=== PATIENT | female | born 1980 | race Caucasian/White ===

== ENCOUNTER 2023-01-16 08:22 | Emergency (ER) | payer OTHER, SELFPAY ==
[2023-01-16] VITALS (66 sets, daily range): BP systolic 129–190; BP diastolic 63–91; PULSE 69–101; RESP 20–24; TEMP 35.7; O2SAT 97–100; BMI 2841.0
--- NOTE | 2023-01-16 09:01 | ED.NAVMDI ---
HPI - Nausea/Vomiting/Diarrhea General Time Seen by Provider: 09:01 Date Seen: 01/16/23 Chief complaint: Nausea/Vomiting Stated complaint: Nausea, unable to walk Time Seen by Provider: 01/16/23 09:02 Source: patient and RN notes reviewed Mode of arrival: wheelchair Limitations: no limitations History of Present Illness HPI Narrative: Patient is a 42-year-old female from the [facility] [place] with onset of nausea vomiting abdominal cramping around 3:00 a.m.. She is not had any diarrhea, does not feel like she is passing gas from below. She did eat pizza last night in nose there can be reactions with the Mounjaro. She was started on this for weight loss and being prediabetic. She states she has a known kidney stone but it does not feel like that. She does not have pain on 1 side radiating down. She is aware we will check a urinalysis however. Her primary concern is nausea. She came in a vehicle, was noted to be hyperventilating and in tetany. That has improved. She is having some abdominal cramping and ongoing nausea. She is not aware of any potential food poisoning or ill contacts. Symptoms just started abruptly this morning. She has had and her appendix out, has had 2 C sections. No history of bowel obstruction to date. MD elicited complaint: nausea, vomiting and abdominal pain Related Data Home Medications Medication Instructions Recorded Confirmed bupropion HCl PO 01/16/23 sertraline 100 mg tablet 100 mg PO DAILY 01/16/23 01/16/23 tirzepatide 5 mg/0.5 mL 5 mg subcut QWEEK 01/16/23 01/16/23 subcutaneous pen injector (Mounjaro) Allergies Allergy/AdvReac Type Severity Reaction Status Date / Time No Known Drug Allergies Allergy Verified 01/16/23 08:39 Review of Systems Status of ROS: Reports: 6 or more systems reviewed and unremarkable except as noted in History and below [facility] Social History Smoking Status: Never smoker Do you use any of these nicotine containing products: None Second hand tobacco smoke exposure: No How often do you have a drink containing alcohol: never How often do you have six or more drinks on one occasion: Never AUDIT-C Alcohol total score: 0 Non-prescribed substance use: denies use service: No Exam Const: Vital Signs, click to edit/add: Vital Signs - 24 hr 01/16/23 08:30 01/16/23 08:37 01/16/23 09:00 Temperature 96.3 F L Pulse Rate Pulse Rate [Pulse Oximeter] 86 84 87 Respiratory Rate 24 20 Blood Pressure Blood Pressure [Ri ght Upper Arm] 135/70 135/70 140/66 H Pulse Oximetry 100 100 100 Oxygen Delivery Me thod Room Air Room Air Room Air 01/16/23 09:05 01/16/23 09:30 01/16/23 10:08 Temperature Pulse Rate 84 Pulse Rate [Pulse Oximeter] Respiratory Rate Blood Pressure Blood Pressure [Ri ght Upper Arm] 129/78 Pulse Oximetry 100 100 Oxygen Delivery Me thod 01/16/23 10:15 01/16/23 10:30 01/16/23 10:33 Temperature Pulse Rate 80 76 72 Pulse Rate [Pulse Oximeter] Respiratory Rate Blood Pressure 168/76 H Blood Pressure [Ri ght Upper Arm] Pulse Oximetry 100 100 100 Oxygen Delivery Dc thod 01/16/23 10:45 01/16/23 11:00 01/16/23 11:02 Temperature Pulse Rate 83 93 92 Pulse Rate [Pulse Oximeter] Respiratory Rate Blood Pressure 143/72 H Blood Pressure [Ri ght Upper Arm] Pulse Oximetry 100 100 100 Oxygen Delivery Me thod 01/16/23 11:03 01/16/23 11:15 01/16/23 11:30 Temperature Pulse Rate 90 80 74 Pulse Rate [Pulse Oximeter] Respiratory Rate Blood Pressure Blood Pressure [Ri ght Upper Arm] Pulse Oximetry 100 100 100 Oxygen Delivery Dc thod 01/16/23 11:33 01/16/23 11:45 01/16/23 12:00 Temperature Pulse Rate 71 75 91 Pulse Rate [Pulse Oximeter] Respiratory Rate Blood Pressure 190/91 H Blood Pressure [Ri ght Upper Arm] Pulse Oximetry 100 100 100 Oxygen Delivery Me thod 01/16/23 12:02 01/16/23 12:15 01/16/23 12:30 Temperature Pulse Rate 96 101 H 87 Pulse Rate [Pulse Oximeter] Respiratory Rate Blood Pressure 150/68 H Blood Pressure [Ri ght Upper Arm] Pulse Oximetry 100 100 100 Oxygen Delivery Dc thod 01/16/23 12:32 01/16/23 12:45 01/16/23 13:00 Temperature Pulse Rate 90 86 88 Pulse Rate [Pulse Oximeter] Respiratory Rate Blood Pressure 154/73 H Blood Pressure [Ri ght Upper Arm] Pulse Oximetry 100 100 100 Oxygen Delivery Me thod 01/16/23 13:01 01/16/23 13:15 01/16/23 13:30 Temperature Pulse Rate 87 92 97 Pulse Rate [Pulse Oximeter] Respiratory Rate Blood Pressure 159/76 H Blood Pressure [Ri ght Upper Arm] Pulse Oximetry 100 100 100 Oxygen Delivery Me thod 01/16/23 13:32 01/16/23 13:45 01/16/23 14:12 Temperature Pulse Rate 99 89 96 Pulse Rate [Pulse Oximeter] Respiratory Rate Blood Pressure 149/72 H Blood Pressure [Ri ght Upper Arm] Pulse Oximetry 100 100 97 Oxygen Delivery Me thod 01/16/23 14:15 01/16/23 14:30 01/16/23 14:31 Temperature Pulse Rate 80 77 78 Pulse Rate [Pulse Oximeter] Respiratory Rate Blood Pressure 158/77 H Blood Pressure [Ri ght Upper Arm] Pulse Oximetry 100 99 99 Oxygen Delivery Me thod 01/16/23 14:32 Temperature Pulse Rate 98 Pulse Rate [Pulse Oximeter] Respiratory Rate Blood Pressure Blood Pressure [Ri ght Upper Arm] Pulse Oximetry 100 Oxygen Delivery Me thod Documenting provider has reviewed patient's vital signs: yes Common normals: oriented x3, no limitations, alert and well nourished General appearance: cooperative, well kempt, well developed, anxious and ill appearing (Seems uncomfortable.) acutely Nutritional appearance: overweight HENMT: Common normals: normocephalic, head/scalp atraumatic, hearing grossly normal bilaterally, external ears normal, external nose normal, moist oral mucous membranes, oropharynx normal, dentition normal and gingiva normal Head and scalp: normocephalic and atraumatic Nose: external nose normal External ear: external ears normal Eye: Common normals: PERRL, EOMs intact bilaterally, conjunctivae normal and no scleral icterus Conjunctiva: conjunctiva(e) normal Pupil: PERRL Neck & C-Spine: Common normals: full ROM, no lymphadenopathy and supple Resp: Common normals: normal respiratory effort, no retractions, no use of accessory muscles and clear to auscultation bilaterally Auscultation: clear to auscultation bilaterally Cardio: Common normals: regular rate, regular rhythm, S1 normal heart sound, S2 normal heart sound, no gallops, no clicks and no murmurs Rate: regular rate Rhythm: regular rhythm Heart sounds: S1 normal and S2 normal GI: Other: Abdomen is soft, does have bowel sounds without concerning character. Abdomen seems mildly distended but no rebound or guarding. Has epigastric to left upper quadrant tenderness. No organomegaly noted. Extremity: Common normals: no calf tenderness and no pedal edema Neuro: Common normals: oriented x3 Sensorium/orientation: alert Psych: Appearance: well kempt Course Course Hospital Course: Gastritis, obstructive bowel pathology, possible gallbladder and pancreatitis issues are considerations here. Will start with a flat and upright, full complement of labs and obtain urinalysis when we can see this. Presentation does not seem likely to be kidney stone pathology but will still be considered. As far as symptom management, start a L of normal saline, 4 mg IV Zofran and 15 mg IV Toradol. Patient obviously was having some anxiety/panic attack symptoms with a hyperventilation and the tetany on arrival. Will be getting electrolytes including magnesium as this could compound symptoms and she is observed to have GI losses at this time. Reevaluation(s) Time of Reevaluation #1: 11:10 Reevaluation #1: Patient is still having significant nausea. We have ordered another L of IV fluids as she still had not urinated either. I have given subsequent dose of 4 mg IV Zofran and 0.5 mg IV Ativan, patient just received those. She is aware of the kidney stone on the right side, still awaiting urinalysis. She understands given her ongoing symptoms we may be forced to proceed with further imaging. Flat and upright are not showing any concerning bowel pathology. She does wonder if she could have some gallbladder stones. We are going to proceed with right upper quadrant ultrasound at this time. Liver enzymes are reassuring but that does not rule out cholelithiasis. She notes that she increased her Mounjaro 3 weeks ago, has noticed some increased GI symptoms with this. Her last dose was a week ago Tuesday. Time of Reevaluation #2: 13:24 Reevaluation #2: Patient's urine is reviewed, it is come back positive for UTI, she has ongoing nausea and vomiting, no abdominal pain at this time. This is certainly concerning for possible pyelonephritis and possible underlying infected kidney stone. She does relate to me at this time about 2 weeks ago she was on antibiotics for similar presentation. She completed these. I have ordered 1 g IV Rocephin, CT abdomen pelvis. Will initiate some maintenance fluids, try some Compazine for nausea control. We are looking for transfer up to [facility] and are calling. It is possible that she may need urologic intervention, not definitively known at this time. Time of Reevaluation #3: 14:53 Reevaluation #3: Reviewed with patient that she is accepted at [facility] on observation. She is still miserable with nausea, will try another dose of Ativan. No pain at this time. Reviewed that there is concern that this stone is a nidus for infection for her. Consultations Consultation #1: Have spoken with the hospitalist at [facility], she accepts patient for observation. Agrees there is concerned that the stone may be a nidus of infection for this patient. Was able to see in her records on December 31 that the patient was given Augmentin for 7 days. Urine culture grew E coli that was pansensitive. Time: 14:49 Vital Signs Vital signs: Initial Vital Signs Temperature 96.3 F L 01/16/23 08:30 Temperature Source Temporal Artery Scan 01/16/23 08:30 Pulse Rate 86 01/16/23 08:30 Pulse Rhythm Regular 01/16/23 08:30 Respiratory Rate 24 01/16/23 08:30 Blood Pressure 135/70 01/16/23 08:30 Blood Pressure Mean 91 01/16/23 08:30 Blood Pressure Position Supine 01/16/23 08:30 Pulse Oximetry 100 01/16/23 08:30 Oxygen Delivery Method Room Air 01/16/23 08:30 Vital Signs Temperature 96.3 F L 01/16/23 08:30 Pulse Rate 86 01/16/23 08:30 Respiratory Rate 24 01/16/23 08:30 Blood Pressure 135/70 01/16/23 08:30 Pulse Oximetry 100 01/16/23 08:30 Oxygen Delivery Method Room Air 01/16/23 08:30 Temperature 96.3 F L 01/16/23 08:30 Pulse Rate 94 01/16/23 19:15 Respiratory Rate 20 01/16/23 09:00 Blood Pressure 164/81 H 01/16/23 19:12 Pulse Oximetry 100 01/16/23 19:15 Oxygen Delivery Method Room Air 01/16/23 09:00 MDM - Nausea/Vomiting/Diarrhea Lab Data Attestation: I reviewed the patient's lab results. Labs: Lab Results 01/16/23 01/16/23 Range/Units 09:22 12:10 WBC 10.88 (4.50-11.00) K/uL RBC 4.68 (4.00-5.20) m/uL Hgb 13.1 (12.0-16.0) gm/dL Hct 38.9 (33.0-51.0) % MCV 83 (80-100) fL MCH 28 (26-34) pg MCHC 34 (32-36) gm/dL RDW Coeff of Uyen 12.9 (11.5-15.5) % Plt Count 81 L (140-440) K/uL Neut % (Auto) 93.1 H (42.0-72.0) % Lymph % (Auto) 4.8 L (20-44) % Cocke % (Auto) 1.6 (0.0-11.0) % Eos % (Auto) 0.1 (0.0-7.0) % Baso % (Auto) 0.1 (0.0-3.0) % Neut # (Auto) 10.10 H (1.7-7.0) K/uL Lymph # (Auto) 0.50 L (0.90-2.90) K/uL Cocke # (Auto) 0.20 (0.00-0.90) K/UL Eos # (Auto) 0.01 (0.00-0.50) K/uL Baso # (Auto) 0.01 (0.00-0.30) K/uL Abs Immat Gran (auto) 0.03 (0.00-0.30) K/uL Imm/Tot Granulo (auto) 0.3 % Sodium 138 (135-149) mmol/L Potassium 3.5 L (3.6-5.1) mmol/L Chloride 103 (96-114) mmol/L Carbon Dioxide 18 L (20-32) mmol/L BUN 17 (5-24) mg/dL Creatinine 0.6 (0.5-1.5) mg/dL Estimated Creat Clear 173.18 Estimated GFR 115 ml/min Glucose 136 H (60-115) mg/dL Lactate 2.4 H (0.5-1.9) mmol/L Calcium 9.6 (8.4-10.6) mg/dL Magnesium 1.8 (1.5-2.6) mg/dL Total Bilirubin 0.9 (0.1-1.5) mg/dL AST 27 (12-35) U/L ALT 23 (4-35) U/L Alkaline Phosphatase 90 (40-150) U/L C-Reactive Protein 2.8 H (0.5-1.0) mg/dL Total Protein 8.7 H (6.0-8.3) g/dL Albumin 4.8 (3.3-5.0) g/dL Lipase 63 (23-300) U/L Urine Color Yellow (Yellow) Urine Appearance Cloudy A (Clear) Urine pH 6.0 (5.0-8.5) Ur Specific [place] 1.025 (1.000-1.030) Urine Protein 1+ A (Negative) Urine Glucose (UA) Negative (Negative) Urine Ketones 4+ A (Negative) Urine Blood 1+ A (Negative) Urine Nitrite Positive A (Negative) Urine Bilirubin Negative (Negative) Urine Urobilinogen 0.2 (0.2-1.0) Ur Leukocyte Esterase 3+ A (Negative) Urine RBC 5-10 A (0-2) Urine WBC 25-50 A (0-5) Ur Squamous Epith Cells Few (None-Few) Urine Bacteria Moderate A (None) Imaging Data Abdominal x-ray: Attestation: I have reviewed the pertinent imaging results. Radiologist's impression: Patient: VERA KITCHEN Facility:?[facility] Patient ID:?[id number] Site Patient ID:?[id number]. Site :?1980 Study:?XRay Abdomen flat/upright-01/16/2023 9:58:35 AM Ordering Physician:Landen Villavicencio Final Report: Indication: Abdominal pain, nausea vomiting Technique: Four upright views of the abdomen and pelvis Comparison: None Findings: Nonobstructive bowel gas pattern. No radiographic evidence of pneumatosis, pneumoperitoneum or portal venous gas. Ovoid calcification projecting over the right flank measuring 1.5 cm may represent a nonobstructive nephrolith. No acute fracture. Visualized lung bases are clear. Impression: 1. Nonobstructive bowel gas pattern. 2. Ovoid calcification projecting over the right flank measuring 1.5 cm may represent a nonobstructive nephrolith. Dictated by Mark Lau MD @ 01/16/2023 10:03:09 AM (Electronic Signature) US - abdomen: Attestation: I have reviewed the pertinent imaging results. Radiologist's impression: Patient: [facility] Facility:?[facility] Patient ID:?[id number] Site Patient ID:?[id number]. Site :?1980 Study:?US Abdomen RUQ-01/16/2023 12:09:50 PM Ordering Physician:Landen Villavicencio Final Report: INDICATION: Nausea, vomiting, abdominal discomfort COMPARISON: none TECHNIQUE: Real time figueroa scale imaging and color Doppler analysis was performed of the right upper quadrant. FINDINGS: The patient`s liver is of normal size and has uniform echogenicity. There is a normal appearance of the hepatic IVC and proximal abdominal aorta. There is no evidence of ascites. The gallbladder is of normal size and there is a small amount of sludge. The gallbladder wall measures 2 mm in thickness. The common bile duct is of normal size and measures 5 mm in diameter at the level of the benton hepatis. There is no evidence of hydronephrosis in the right kidney. The right kidney measures 13 x 4.3 x 6.8 cm in length. There is a nonobstructive nephrolith pelvis measuring approximately 1.7 x 1.8 cm. IMPRESSION: 1. Gallbladder sludge without acute cholecystitis. 2. No hydronephrosis. Nonobstructive nephrolith in the right kidney pelvis measuring approximately 1.7 x 1.8 cm. Dictated by Mark Lau MD @ 01/16/2023 12:26:33 PM (Electronic Signature) CT Chest/Ab/Pelvis: Attestation: I have reviewed the pertinent imaging results. Radiologist's impression: Patient: [facility] Facility:?[facility] Patient ID:?[id number] Site Patient ID:?[id number]. Site :?1980 Study:?CT Chest/Abd/Pelvis W/ 97CC [id number]/23/2023 2:12:48 PM Ordering Physician:Landen Villavicencio Final Report: INDICATION: Nausea and vomiting. Urinary tract infection. Right kidney stone. TECHNIQUE: CT chest, abdomen and pelvis acquired with IV contrast. 97 mL IV Isovue 370. COMPARISON: Abdomen radiograph and ultrasound 01/16/2023. FINDINGS: Chest: Cardiovascular structures: Heart size is normal. Thoracic aorta and main pulmonary artery are normal in caliber. Mediastinum and darrel: No mass or adenopathy. Lungs: The central airways are clear. No suspicious pulmonary nodule or mass. No consolidation, pleural effusion or pneumothorax. Abdomen and Pelvis: Liver: Mild focal fatty infiltration along the gallbladder fossa. No liver lesion. Gallbladder and bile ducts: No calcified cholelithiasis. No biliary ductal dilatation. Spleen: Unremarkable. Pancreas: Unremarkable. Adrenal glands: There is a 1.3 x 1 cm right adrenal nodule (series 7, image 50) a left adrenal gland is normal in appearance. Kidneys: Symmetric nephrograms. There is a 1.3 cm nonobstructing stone in the right renal pelvis (1275 HU). There is minimally increased urothelial enhancement along the right renal collecting system/proximal ureter compared to the left. No ureteral stones. No left renal stones. No renal lesions. GI tract: Small hiatal hernia. No bowel obstruction or inflammation. Appendix is surgically absent. Vascular structures: Minimal atherosclerotic calcification in the abdominal aorta. No abdominal aortic aneurysm. Lymph nodes: No abdominal or pelvic lymphadenopathy. Miscellaneous: No ascites. No free air. Small fat containing umbilical hernia. Pelvic Organs: Unremarkable. Bones: Moderate degenerative changes in the thoracic spine and mild in the lumbar spine. No acute osseous abnormality. Benign bone island in the proximal left femur. No suspicious bone lesion. IMPRESSION: 1. Nonobstructing right renal stone as seen on the same day abdomen ultrasound. 2. Minimally increased enhancement in the right renal collecting system/proximal ureter could be related to infection. No findings to suggest pyelonephritis. 3. Indeterminate 1.3 cm right adrenal nodule. This can be evaluated with dedicated contrast enhanced adrenal CT or MRI as an outpatient. Please note that all CT scans at this facility use dose modulation, iterative reconstruction, and/or weight-based dosing when appropriate to reduce radiation dose to as low as reasonably achievable. Dictated by Annie Brantley MD @ 01/16/2023 2:37:50 PM (Electronic Signature) Discharge Plan Discharge Clinical Impression: Urinary tract infection, Kidney calculus, Nausea & vomiting Patient Disposition: Xfer [facility] Discharge Location: [facility] Prescriptions: No Action sertraline 100 mg tablet 100 mg PO DAILY bupropion HCl PO Mounjaro 5 mg/0.5 mL pen injector 5 mg subcut QWEEK Stand Alone Forms: [employer] Info Instructions Critical Care Time Critical Care Time Critical Care Time: No
--- NOTE | 2023-01-16 09:05 | CRLHL7_ITS ---
For Patients: As a result of the Century Cures Act, medical imaging exams and procedure reports are released immediately into your electronic medical record. You may view this report before your referring provider. If you have questions, please contact your health care provider. Indication: Abdominal pain, nausea vomiting Technique: Four upright views of the abdomen and pelvis Comparison: None Findings: Nonobstructive bowel gas pattern. No radiographic evidence of pneumatosis, pneumoperitoneum or portal venous gas. Ovoid calcification projecting over the right flank measuring 1.5 cm may represent a nonobstructive nephrolith. No acute fracture. Visualized lung bases are clear. Impression: 1. Nonobstructive bowel gas pattern. 2. Ovoid calcification projecting over the right flank measuring 1.5 cm may represent a nonobstructive nephrolith. Dictated by Mark Lau MD @ 01/16/2023 10:03:09 AM (Electronically Signed)
[2023-01-16 09:28] LABS: Lactate* 2.4 mmol/L (0.5-1.9)
[2023-01-16 09:34] LABS: Basophils Absolute Auto 0.01 K/uL (0.00-0.30); Basophils Percent Auto 0.1 % (0.0-3.0); Eosinophils Absolute Auto 0.01 K/uL (0.00-0.50); Eosinophils Percent Auto 0.1 % (0.0-7.0); Hematocrit 38.9 % (33.0-51.0); Hemoglobin* 13.1 gm/dL (12.0-16.0); Immature Granulocytes Abs Auto 0.03 K/uL (0.00-0.30); Immature Granulocytes Pct Auto 0.3 %; Lymphocytes Percent Auto 4.8 % (20-44); Mean Corpuscular HGB Conc 34 gm/dL (32-36); Mean Corpuscular Hemoglobin 28 pg (26-34); Mean Corpuscular Volume 83 fL (80-100); Monocytes Percent Auto 1.6 % (0.0-11.0); Neutrophils Percent Auto 93.1 % (42.0-72.0); Platelet Count* 81 K/uL (140-440); RDW Coefficient of Variation % 12.9 % (11.5-15.5); Red Blood Count 4.68 m/uL (4.00-5.20); White Blood Count* 10.88 K/uL (4.50-11.00)
[2023-01-16 09:35] LABS: Slide Review Reflex No
[2023-01-16] MEDS: 0.9 % SODIUM CHLORIDE 1000 ml 1,000 ML IV (09:35)
[2023-01-16] MEDS: ONDANSETRON 2 MG/ML inj 4 MG IVP ×2 (09:37→11:04)
[2023-01-16] MEDS: KETOROLAC 15 MG/ML inj IVP (09:41)
[2023-01-16 09:49] LABS: Lipase* 63 U/L (23-300); Magnesium* 1.8 mg/dL (1.5-2.6)
[2023-01-16 09:56] LABS: Albumin* 4.8 g/dL (3.3-5.0); Chloride* 103 mmol/L (96-114)
[2023-01-16 09:57] LABS: Potassium* 3.5 mmol/L (3.6-5.1); Sodium* 138 mmol/L (135-149)
[2023-01-16 09:59] LABS: Bilirubin Total* 0.9 mg/dL (0.1-1.5); Creatinine* 0.6 mg/dL (0.5-1.5); Est. Creatinine Clearance* 173.18; Estimated Glomerular Filt Rate 115 ml/min
[2023-01-16 10:00] LABS: Alanine Aminotransferase* 23 U/L (4-35); Alkaline Phosphatase* 90 U/L (40-150); Aspartate Amino Transferase* 27 U/L (12-35); Blood Urea Nitrogen* 17 mg/dL (5-24); Calcium* 9.6 mg/dL (8.4-10.6); Carbon Dioxide* 18 mmol/L (20-32); Glucose* 136 mg/dL (60-115); Total Protein* 8.7 g/dL (6.0-8.3)
[2023-01-16 10:03] LABS: C Reactive Protein* 2.8 mg/dL (0.5-1.0)
[2023-01-16] MEDS: LACTATED RINGERS 1000 ML 1,000 ML IV (10:39)
[2023-01-16] MEDS: LORazepam 2 MG/ML inj 0.5 MG IVP ×2 (11:02→15:02)
--- NOTE | 2023-01-16 11:17 | CRLHL7_ITS ---
For Patients: As a result of the Century Cures Act, medical imaging exams and procedure reports are released immediately into your electronic medical record. You may view this report before your referring provider. If you have questions, please contact your health care provider. INDICATION: Nausea, vomiting, abdominal discomfort COMPARISON: none TECHNIQUE: Real time figueroa scale imaging and color Doppler analysis was performed of the right upper quadrant. FINDINGS: The patient`s liver is of normal size and has uniform echogenicity. There is a normal appearance of the hepatic IVC and proximal abdominal aorta. There is no evidence of ascites. The gallbladder is of normal size and there is a small amount of sludge. The gallbladder wall measures 2 mm in thickness. The common bile duct is of normal size and measures 5 mm in diameter at the level of the benton hepatis. There is no evidence of hydronephrosis in the right kidney. The right kidney measures 13 x 4.3 x 6.8 cm in length. There is a nonobstructive nephrolith pelvis measuring approximately 1.7 x 1.8 cm. IMPRESSION: 1. Gallbladder sludge without acute cholecystitis. 2. No hydronephrosis. Nonobstructive nephrolith in the right kidney pelvis measuring approximately 1.7 x 1.8 cm. Dictated by Mark Lau MD @ 01/16/2023 12:26:33 PM (Electronically Signed)
[2023-01-16 12:23] LABS: Appearance Urine Cloudy (Clear); Bilirubin Urine Negative (Negative); Blood Urine 1+ (Negative); Color Urine Yellow (Yellow); Glucose Urine Negative (Negative); Ketones Urine 4+ (Negative); Leukocyte Esterase Urine 3+ (Negative); Nitrite Urine Positive (Negative); Protein Urine 1+ (Negative); Specific Gravity Urine 1.025 (1.000-1.030); Urobilinogen Urine 0.2 (0.2-1.0)
--- NOTE | 2023-01-16 12:24 | ED.NURSE ---
continues to have more nausea and vomiting-approx 50 ml -gastric secretions. does have more color to her face. was able to stand and walk back from bathroom.
[2023-01-16 12:35] LABS: Bacteria Urine Moderate; Squamous Epithelial Cell Urine Few (None-Few); WBC Urine 25-50 (0-5)
--- NOTE | 2023-01-16 13:18 | CRLHL7_ITS ---
For Patients: As a result of the 21st Century Cures Act, medical imaging exams and procedure reports are released immediately into your electronic medical record. You may view this report before your referring provider. If you have questions, please contact your health care provider. INDICATION: Nausea and vomiting. Urinary tract infection. Right kidney stone. TECHNIQUE: CT chest, abdomen and pelvis acquired with IV contrast. 97 mL IV Isovue 370. COMPARISON: Abdomen radiograph and ultrasound 01/16/2023. FINDINGS: Chest: Cardiovascular structures: Heart size is normal. Thoracic aorta and main pulmonary artery are normal in caliber. Mediastinum and darrel: No mass or adenopathy. Lungs: The central airways are clear. No suspicious pulmonary nodule or mass. No consolidation, pleural effusion or pneumothorax. Abdomen and Pelvis: Liver: Mild focal fatty infiltration along the gallbladder fossa. No liver lesion. Gallbladder and bile ducts: No calcified cholelithiasis. No biliary ductal dilatation. Spleen: Unremarkable. Pancreas: Unremarkable. Adrenal glands: There is a 1.3 x 1 cm right adrenal nodule (series 7, image 50) a left adrenal gland is normal in appearance. Kidneys: Symmetric nephrograms. There is a 1.3 cm nonobstructing stone in the right renal pelvis (1275 HU). There is minimally increased urothelial enhancement along the right renal collecting system/proximal ureter compared to the left. No ureteral stones. No left renal stones. No renal lesions. GI tract: Small hiatal hernia. No bowel obstruction or inflammation. Appendix is surgically absent. Vascular structures: Minimal atherosclerotic calcification in the abdominal aorta. No abdominal aortic aneurysm. Lymph nodes: No abdominal or pelvic lymphadenopathy. Miscellaneous: No ascites. No free air. Small fat containing umbilical hernia. Pelvic Organs: Unremarkable. Bones: Moderate degenerative changes in the thoracic spine and mild in the lumbar spine. No acute osseous abnormality. Benign bone island in the proximal left femur. No suspicious bone lesion. IMPRESSION: 1. Nonobstructing right renal stone as seen on the same day abdomen ultrasound. 2. Minimally increased enhancement in the right renal collecting system/proximal ureter could be related to infection. No findings to suggest pyelonephritis. 3. Indeterminate 1.3 cm right adrenal nodule. This can be evaluated with dedicated contrast enhanced adrenal CT or MRI as an outpatient. Please note that all CT scans at this facility use dose modulation, iterative reconstruction, and/or weight-based dosing when appropriate to reduce radiation dose to as low as reasonably achievable. Dictated by Annie Brantley MD @ 01/16/2023 2:37:50 PM (Electronically Signed)
[2023-01-16] MEDS: PROCHLORPERAZINE 5 MG/ML VIAL IVP (13:25)
[2023-01-16] MEDS: cefTRIAXone 1 GM in 0.9 % SODIUM CHLORIDE Mini-bag 100 ML IVPB (13:26)
[2023-01-16] MEDS: LACTATED RINGERS 1000 ML 1,000 ML 125 ML IV (13:44)
--- NOTE | 2023-01-16 15:27 | ED.NURSE ---
report was called to [facility] patel. will go to [id number].
--- NOTE | 2023-01-16 15:30 | ED.NURSE ---
transport was called-delayed due to previous transport and 911 calls.
--- NOTE | 2023-01-16 15:32 | ED.NURSE ---
Jb [phone] and [facility] will be transported to [facility]. Jb is requesting a call when she leaves.
--- NOTE | 2023-01-16 17:15 | ED.NURSE ---
is able to rest. no longer retching. awaiting transport.
--- NOTE | 2023-01-16 17:21 | ED.NURSE ---
ems dispatch was called for transport- will transport when available.
--- NOTE | 2023-01-16 18:24 | ED.NURSE ---
has been sleeping, color is pink. awaiting tranport.
--- NOTE | 2023-01-16 19:19 | ED.NURSE ---
transferred to [facility] via [facility].
--- NOTE | 2023-01-16 19:24 | ED.NURSE ---
Jb called and aware of time of transfer.
== END 2023-01-16 19:21 | disposition short-term general hospital (02) ==
PROVIDERS: Emergency Provider Family Medicine
DX: N39.0 Urinary tract infection, site not specified (principal); N20.0 Calculus of kidney; R11.2 Nausea with vomiting, unspecified
CPT/HCPCS: 36415; 71260; 74019; 74177; 76705; 80053; 81001; 83605; 83690; 83735; 85025; 86140; 87086; 87186; 94761; 96365; 96375; 96376; 99283; 99285; J0696; J0780; J1885; J2060; J2405; J7030; J7120; Q9967

== ENCOUNTER 2023-01-16 19:21 | Outpatient (CLI) | payer OTHER, SELFPAY | END 2023-01-16 19:22 | disposition home or self-care (01) | LOC: AMB 01-17 10:49 | PROVIDERS: Visit Provider Student in an Organized Health Care Education/Training Program | DX: N20.0 Calculus of kidney (principal); N39.0 Urinary tract infection, site not specified | CPT/HCPCS: A0425; A0426; A0428 ==